=== PATIENT | male | born 2000 | race Caucasian/White ===

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

== ENCOUNTER 2021-11-21 08:02 | Emergency (ER) | payer SELFPAY ==
[~2021-11-21] VITALS: Ht 182.9 cm; Wt 86.3 kg
--- NOTE | 2021-11-21 08:49 | RAD ---
Exam Date: 11/21/2021 8:31 AM XR SHOULDER_RIGHT 2+ VIEWS Indication: Reason: PAIN, PT FELL THIS MORNING / Spl. Instructions: / History: . FINDINGS/ IMPRESSION: There is a nondisplaced comminuted acute fracture of the humeral neck without significant displacemen t or angulation. Glenohumeral joint and AC joint are intact. Soft tissues are normal. Electronically signed by: Blas Black MD (11/21/2021 8:46 AM) [id number]
[2021-11-21] MEDS ORDERED: HYDROcodone/APAP 5/325MG 1 TAB TABLET PO ONE ×2 (10:00→11:00)
[2021-11-21 10:12] VITALS: BP 126/86
--- NOTE | 2021-11-21 10:15 | PHYS DOC ---
Past History Past Medical History: No Pertinent History Additional Smoking Information: vape Alcohol Use: None Drug Use: Marijuana General Adult EDM: Chief Complaint: SHOULDER INJURY HPI: HPI: Patient is a 21 year old male who presents with right shoulder pain. Patient states he was walking to the gas station and thought he could "get a few good steps in," so he began running. He lost his footing and fell to the ground directly onto his right shoulder. Patient denies head trauma, loss of consciousness, paresthesias, abrasions, lacerations, nausea, vomiting and any other joint pain or injury. Review of Systems: Review of Systems: Constitutional: Denies fever or chills Cardiovascular: Denies chest pain or edema GI: Denies abdominal pain, nausea, vomiting, bloody stools or diarrhea : Denies dysuria or hematuria Musculoskeletal: See HPI Integument: See HPI Neurologic: See HPI Current Medications: Current Meds: Current Medications Medications (Trade) Dose Ordered Sig/[place] Start Time Stop Time Status Last Admin Dose Admin Acetaminophen/ Hydrocodone Bitart (Lortab 5/325) 1 tab 1X ONCE 11/21/21 10:00 11/21/21 10:01 DC 11/21/21 10:06 1 TAB Allergies: Allergies: Allergies Coded Allergies Type Severity Reaction Last Updated Verified codeine Allergy Unknown 11/21/21 Yes Physical Exam: PE: Constitutional: Well developed, well nourished, no acute distress, non-toxic appearance. HENT: Normocephalic, atraumatic, bilateral external ears without deformity/ecchymosis or discharge, oropharynx moist, no oral exudates, nose without obvious deformity or epistaxis. Eyes: PERRLA, EOMI, conjunctiva normal, no discharge. Neck: Normal range of motion, no step-off, no tenderness. Cardiovascular: Heart rate regular rhythm, no murmur. Lungs & Thorax: Bilateral breath sounds clear to auscultation. Skin: Warm, dry, no erythema, no rash, no abrasions, no lacerations. Back: No step-off, no tenderness. 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 Extremities otherwise no tenderness, no cyanosis, no clubbing, ROM intact, no edema. Neurologic: Alert and oriented x4, steady and symmetrical gait, no focal deficits noted. Current Patient Data: Vital Signs: Vital Signs Date Time Temp Pulse Resp B/P (MAP) Pulse Ox O2 Delivery O2 Flow Rate FiO2 11/21/21 10:12 98.0 81 16 126/86 (99) 99 Room Air 11/21/21 10:06 Room Air Radiology/Procedures: Radiology/Procedures: PROCEDURE: SHOULDER 2+V RIGHT Exam Date: 11/21/2021 8:31 AM XR SHOULDER_RIGHT 2+ VIEWS Indication: Reason: PAIN, PT FELL THIS MORNING / Spl. Instructions: / History: . FINDINGS/ IMPRESSION: There is a nondisplaced comminuted acute fracture of the humeral neck without significant displacement or angulation. Glenohumeral joint and AC joint are intact. Soft tissues are normal. Electronically signed by: Blas Black MD (11/21/2021 8:46 AM) [id number] Heart Score: C/O Chest Pain: No Course & Med Decision Making: Course & Med Decision Making Pertinent Labs and Imaging studies reviewed. (See chart for details) Patient is a 21-year-old healthy male who presents with right shoulder pain a fter mechanical fall from standing while running. Work-up today will include plain films of the right shoulder. Patient provided with p.o. hydrocodone for pain control. Plain films show a nondisplaced, nonangulated comminuted fracture of the humeral neck on the right side. Patient is already placed in a sling. Please to call to Dr. Carrasco with [facility] orth[facility]. They will happily see him in the office for follow-up. Contact information is provided to the patient. Patient has return precautions. He understands and is agreeable to discharge plan. Dragon Disclaimer: Dragon Disclaimer: This electronic medical record was generated, in whole or in part, using a voice recognition dictation system. Departure Departure: Impression: Primary Impression: Fracture of neck of right humerus Qualified Codes: S42.211A - Unspecified displaced fracture of surgical neck of right humerus, initial encounter for closed fracture Disposition: HOME / SELF CARE / HOMELESS Condition: STABLE Referrals: PCP,NO (PCP) OSMAR CARRASCO Jr. DO [facility] Patient Instructions: Humerus Fracture, Treated with Immobilization, [id number] Additional Instructions: EMERGENCY DEPARTMENT GENERAL DISCHARGE INSTRUCTIONS Thank you for coming to [facility] (ED) today and trusting us with you care. We trust that you had a positive experience in our Emergency Dep artment. If you wish to speak to the department management, you may call the director at . YOUR FOLLOW UP INSTRUCTIONS ARE FOLLOWS: 1. Do you have a private doctor? If you do not have a private doctor, please ask for a resource list of physicians or clinics that may be able to assist you with follow up care. 2. The ER physician has interpreted your x-rays. The X-Ray specialist also reviewed them. If there is a change in the findings, you will be notified in 48 hours when at all possible. 3. Follow up with the capital markets specialist for further evaluation and treatment. ADDITIONAL INSTRUCTIONS AND INFORMATION: 1. Your care today has been supervised by a physician who is specially trained in emergency care. Many problems require more than one evaluation for a complete diagnosis and treatment. We recommend that you schedule your follow up appointment as recommended to ensure complete treatment of you illness or injury. If you are unable to obtain follow up care and continue to have a problem, or if your condition worsens, we recommend that you return to the ED. 2. We are not able to safely determine your condition over the phone nor are we able to give sound medical advice over the phone. For these safety reasons, if you call for medical advice we will ask you to come to the ED for further evaluation. 3. If you have any questions regarding these discharge instructions please call the ED at . SAFETY INFORMATION: In the interest of safety, wellness, and injury prevention; we encourage you to wear your seat belt, if you smoke; quite smoking, and we encourage family to use a protective helmet for bicycling and other sporting events that present an increased risk for head injury. IF YOUR SYMPTOMS WORSEN OR NEW SYMPTOMS DEVELOP, OR YOU HAVE CONCERNS ABOUT YOUR CONDITION; OR IF YOUR CONDITION WORSENS WHILE YOU ARE WAITING FOR YOUR FOLLOW UP APPOINTMENT; EITHER CONTACT YOUR PRIMARY CARE DOCTOR, THE PHYSICIAN WHOSE NAME AND NUMBER YOU WERE GIVEN, OR RETURN TO THE ED IMMEDIATELY. Scripts Hydrocodone Bit/Acetaminophen (HYDROCODONE-APAP 5-325 ) 1 Each Tablet 1 TAB PO PRN Q6HRS PRN for PAIN for 5 Days, #20 TAB 0 Refills Prov: ODESSA POWELL 11/21/21 ODESSA POWELL Nov 21, 2021 10:15
--- NOTE | 2021-11-21 10:22 | NUR ---
FROM [facility] AT [phone].
[2021-11-21] MEDS ORDERED: HYDR-2155 PO (10:49)
== END 2021-11-21 11:55 | disposition home or self-care (01) ==
LOC: ER 08:06
DX: S42.211A Unspecified displaced fracture of surgical neck of right humerus, initial encounter for closed fracture (principal); F17.200 Nicotine dependence, unspecified, uncomplicated; Z88.5 Allergy status to narcotic agent; W18.39XA Other fall on same level, initial encounter; Y93.02 Activity, running; Y92.89 Other specified places as the place of occurrence of the external cause; Y99.8 Other external cause status
CPT/HCPCS: 73030; 99283